=== PATIENT | female | born 1960 | race Caucasian/White ===

== ENCOUNTER 2016-09-14 09:19 | Observation (INO) | payer MEDICAID ==
[2016-09-14 09:29] VITALS: BMI 21.5
--- NOTE | 2016-09-14 10:07 | ED PDOC ---
Arrival/HPI - General Chief Complaint: Shortness Of Breath Time Seen by Provider: 09/14/16 09:34 Historian: Patient - History of Present Illness Narrative History of Present Illness (Text): 09/14/16 10:04 A 56 year old female, whose past medical history includes hypertension and acid reflux, presents to the emergency department complaining of shortness of breath for 1 month. Patient reports her symptoms have worsened over the past 2 days. Patient notes associated midsternal chest pressure, worse when taking deep breaths. Patient denies any recent travel. Denies any lower leg pain or swelling. Patient denies any other fever, chills, nausea, vomiting, abdominal pain, cough, headache, dizziness or any other complaints. Patient states she has been seen by her PMD for same symptoms. PMD: Dr. Major Time/Duration: Other (1 month) Symptom Course: Worsening (over the past 2 days) Quality: Pressure Severity Level: Mild Context: Home Past Medical History - Provider Review Nursing Documentation Reviewed: Yes - Travel History Have you recently traveled outside [place] w/in the past 3 mons?: No - Tetanus Immunization Tetanus Immunization: Unknown - Cardiac Hx Cardiac Disorders: Yes Hx Hypertension: Yes - Psychiatric Hx Substance Use: No Family/Social History - Physician Review Nursing Documentation Reviewed: Yes Family/Social History: No Known Family HX Smoking Status: Never Smoked Hx Alcohol Use: No Hx Substance Use: No Allergies/Home Meds Allergies/Adverse Reactions: Allergies No Known Allergies Allergy (Verified 09/14/16 09:29) Home Medications: Home Meds Medication Instructions Recorded Confirmed Amoxicillin/Clavulanate [Augmentin 1 tab PO BID 09/14/16 09/14/16 875 MG-125 MG] Aspirin [Adult Low Dose Aspirin EC] 81 mg PO DAILY 09/14/16 09/14/16 Cyanocobalamin (Vitamin B-12) 500 mcg PO DAILY 09/14/16 09/14/16 [Vitamin B-12] Ergocalciferol (Vitamin D2) 50,000 unit PO QWK 09/14/16 09/14/16 [Vitamin D2] Metoprolol Tartrate [Lopressor] 25 mg PO DAILY 09/14/16 09/14/16 Pantoprazole [Protonix] 40 mg PO DAILY 09/14/16 09/14/16 amLODIPine [Norvasc] 2.5 mg PO DAILY 09/14/16 09/14/16 Review of Systems - Physician Review All systems were reviewed & negative as marked: Yes - Review of Systems Constitutional: absent: Fatigue, Fevers, Night Sweats Respiratory: SOB. absent: Cough, Wheezing Cardiovascular: Chest Pain. absent: Syncope Gastrointestinal: absent: Abdominal Pain, Nausea, Vomiting Musculoskeletal: absent: Arthralgias, Myalgias Skin: absent: Rash, Pruritis Neurological: absent: Headache, Dizziness Physical Exam Vital Signs Reviewed: Yes Vital Signs Temp Pulse Resp BP Pulse Ox 09/14/16 13:49 97 H 16 129/73 99 09/14/16 11:36 91 H 16 145/68 100 09/14/16 09:34 18 09/14/16 09:26 98.4 F 100 H 18 156/79 H 100 Temperature: Afebrile Blood Pressure: Hypertensive Pulse: Tachycardic Respiratory Rate: Normal Appearance: Positive for: Well-Appearing, Non-Toxic, Comfortable Pain Distress: None Mental Status: Positive for: Alert and Oriented X 3 - Systems Exam Head: Present: Atraumatic, Normocephalic Pupils: Present: PERRL Extroacular Muscles: Present: EOMI Conjunctiva: Present: Normal Mouth: Present: Moist Mucous Membranes Pharnyx: No: ERYTHEMA, EXUDATE, TONSILS ENLARGED Neck: Present: Normal Range of Motion Respiratory/Chest: Present: Clear to Auscultation, Good Air Exchange, Tender to Palpation (Anterior chest wall tenderness to palpation). No: Respiratory Distress, Accessory Muscle Use Cardiovascular: Present: Regular Rate and Rhythm, Normal S1, S2. No: Murmurs Abdomen: Present: Normal Bowel Sounds. No: Tenderness, Distention, Peritoneal Signs Back: Present: Normal Inspection Upper Extremity: Present: Normal Inspection. No: Cyanosis, Edema Lower Extremity: Present: Normal Inspection. No: Edema Neurological: Present: GCS=15, Speech Normal Skin: Present: Warm, Dry, Normal Color. No: Rashes Psychiatric: Present: Alert, Oriented x 3 Medical Decision Making ED Course and Treatment: 09/14/16 10:04 Impression: A 56 year old female with worsening shortness of breath and midsternal chest pressure. Plan: -- Chest xray: wnl -- EKG: shows normal sinus rhythm at [address] elevations -- Labs: k; 3.2 trop; wnl -- Urinalysis: small blood -- Reassess and disposition Progress Notes: CMP; elevated lfts. Patient with elevated d-dimer CT angiogram to rule out pulmonary embolism was ordered. CT angiogram:FINDINGS: PULMONARY ARTERIES: Unremarkable. No pulmonary embolism. AORTA: No acute findings. No thoracic aortic aneurysm. LUNGS: Unremarkable. No nodule, mass or pulmonary consolidation. PLEURAL SPACES: Unremarkable. No effusion or pneuomothorax. HEART: Unremarkable. No cardiomegaly. No significant pericardial effusion. LYMPH NODES: No lymphadenopathy. BONES, CHEST WALL: Unremarkable. No fracture or destructive lesion OTHER FINDINGS: There is a 15 mm aneurysm arising from the splenic artery. This is seen on image 71 in the coronal plane IMPRESSION: Unremarkable CT pulmonary angiogram. No pulmonary embolus. Incidental splenic artery aneurysm pepcid and ASA given IV. Case discussed in depth with Dr. Major: will admit observational status to telemetry for chest pain rule out ACS. We will consult Dr. Browne regarding splenic artery aneurysm. all results discussed in depth with patient and family. Impression: Chest pain, splenic artery aneurysm Admitted to telemetry observational status - Lab Interpretations Lab Results: 09/14/16 10:16 09/14/16 10:16 Lab Results 09/14/16 10:29: Urine Color Yellow, Urine Appearance Clear, Urine pH 6.0, Ur Specific [place] 1.025, Urine Protein 100 H, Urine Glucose (UA) Negative, Urine Ketones Negative, Urine Blood Small H, Urine Nitrate Negative, Urine Bilirubin Negative, Urine Urobilinogen 0.2, Ur Leukocyte Esterase Negative, Urine RBC 0 - 2, Urine WBC 1 - 3, Ur Epithelial Cells 1 - 3, Urine Bacteria Few 09/14/16 10:16: D-Dimer, Quantitative 1.51 H 09/14/16 10:16: WBC 10.4, RBC 4.77, Hgb 12.1, Hct 37.5, MCV 78.6 L, MCH 25.4, MCHC 32.3, RDW 13.9, Plt Count 209, MPV 9.6, Gran % 78.1 H, Lymph % (Auto) 12.9 L, [place] % (Auto) 8.2 H, Eos % (Auto) 0.7 L, Baso % (Auto) 0.1, Gran # 8.15 H, Lymph # 1.4, [place] # 0.9 H, Eos # 0.1, Baso # 0.01 09/14/16 10:16: Sodium 142, Potassium 3.2 L, Chloride 106, Carbon Dioxide 23, Anion Gap 16, BUN 20, Creatinine 1.2, Est GFR ( Amer) 56, Est GFR (Non- Af Amer) 46, Random Glucose 117 H, Calcium 9.6, Total Bilirubin 0.6, AST 55 H, ALT 62 H, Alkaline Phosphatase 144 H, Lactate Dehydrogenase 448, Total Creatine Kinase 50, Troponin I < 0.01, Total Protein 8.6 H, Albumin 4.5, Globulin 4.1, Albumin/Globulin Ratio 1.1 I have reviewed the lab results: Yes - RAD Interpretation Radiology Orders: 09/14/16 10:05 CHEST PORTABLE [RAD] Stat 09/14/16 10:52 ANGIO CHEST PE PROTOCOL [CT] Stat - Medication Orders Current Medication Orders: Aspirin (Ecotrin) 81 mg PO DAILY ALEIDA Insulin Human Regular (Humulin R Low) 0 units SC ACHS ALEIDA PRN Reason: Protocol Metoprolol Tartrate (Lopressor) 25 mg PO BID ALEIDA Potassium Chloride (K-Dur 20 Meq Er Tab) 40 meq PO ONCE ONE Stop: 09/14/16 20:01 Discontinued Medications Aspirin (Aspirin) 325 mg PO STAT STA Stop: 09/14/16 14:09 Last Admin: 09/14/16 14:40 Dose: 325 mg Famotidine (Pepcid) 20 mg IVP STAT STA Stop: 09/14/16 11:41 Last Admin: 09/14/16 11:55 Dose: 20 mg Sodium Chloride (Sodium Chloride 0.9%) 1,000 mls @ 999 mls/hr IV .Q1H1M STA Stop: 09/14/16 11:53 Last Admin: 09/14/16 10:58 Dose: 999 mls/hr Iohexol (Omnipaque 350 100 Ml) Confirm Administered Dose 350 mg .ROUTE .STK-MED ONE Stop: 09/14/16 11:05 Potassium Chloride (K-Dur 20 Meq Er Tab) 40 meq PO STAT STA Stop: 09/14/16 16:32 - Scribe Statement The provider has reviewed the documentation as recorded by the Bertaibphi Harvey Provider Scribe Attestation: All medical record entries made by the Scribe were at my direction and personally dictated by me. I have reviewed the chart and agree that the record accurately reflects my personal performance of the history, physical exam, medical decision making, and the department course for this patient. I have also personally directed, reviewed, and agree with the discharge instructions and disposition. Disposition/Present on Arrival - Present on Arrival Any Indicators Present on Arrival: No History of DVT/PE: No History of Uncontrolled Diabetes: No Urinary Catheter: No History of Decub. Ulcer: No History Surgical Site Infection Following: None - Disposition Have Diagnosis and Disposition been Completed?: Yes Diagnosis: Chest pain, Splenic artery aneurysm Disposition: HOSPITALIZED Disposition Time: 14:05 Patient Plan: Observation, Telemetry Condition: FAIR
[2016-09-14 10:21] LABS: BASO # 0.01 K/mm3 (0.0-2.0); BASO % 0.1 % (0.0-3.0); EOS # 0.1 (0.0-0.7); EOS % 0.7 % (1.5-5.0); GRAN # 8.15 (1.4-6.5); GRAN % 78.1 % (50.0-68.0); HEMOGLOBIN 12.1 g/dL (12.0-16.0); LYMPH # 1.4 (1.2-3.4); LYMPH % 12.9 % (22.0-35.0); MEAN CELL VOLUME 78.6 fl (80.0-105.0); MEAN CORPUSCULAR HEMOGLOBIN 25.4 pg (25.0-35.0); MEAN CORPUSCULAR HGB CONC 32.3 g/dl (31.0-37.0); MEAN PLATELET VOLUME 9.6 fl (7.0-11.0); MONO # 0.9 (0.1-0.6); MONO % 8.2 % (1.0-6.0); PLATELET COUNT 209 10^3/uL (120.0-450.0); RBC 4.77 10^6/uL (3.5-6.1); RED CELL DISTRIBUTION WIDTH 13.9 % (11.5-14.5); WHITE BLOOD COUNT 10.4 10^3/ul (4.5-11.0)
[2016-09-14 10:30] LABS: ALB/GLOB RATIO 1.1 (1.1-1.8); ALBUMIN 4.5 g/dL (3.0-4.8); ALT/SGPT 62 U/L (7-56); AST/SGOT 55 U/L (15-39); BLOOD UREA NITROGEN 20 mg/dL (7-21); CALCIUM 9.6 mg/dL (8.4-10.5); GFR AFRICAN-AMERICAN 56; GFR NON-AFRICAN AMERICAN 46
[2016-09-14 10:32] LABS: URINE BILIRUBIN NEGATIVE (NEGATIVE); URINE BLOOD SMALL (NEGATIVE); URINE GLUCOSE (UA) NEGATIVE (NEGATIVE); URINE LEUKOCYTE ESTERASE NEGATIVE Leu/uL (NEGATIVE); URINE NITRATE NEGATIVE (NEGATIVE); URINE PROTEIN 100 mg/dL (<30 mg/dL); URINE UROBILINOGEN 0.2 E.U./dL (<1 E.U./dL)
[2016-09-14 10:33] LABS: URINE APPEARANCE CLEAR (CLEAR); URINE COLOR YELLOW (YELLOW)
[2016-09-14 10:43] LABS: URINE RBC 0 - 2 /hpf (0-2)
[2016-09-14 10:44] LABS: URINE BACTERIA FEW (NEG)
[2016-09-14 10:48] LABS: TROPONIN I < 0.01 ng/mL
[2016-09-14] MEDS ORDERED: Sodium Chloride 0.9% 1,000 ML IV STA (10:53)
--- NOTE | 2016-09-14 10:53 | RAD ---
HISTORY: chest pain COMPARISON: No prior. FINDINGS: LUNGS: No active pulmonary disease. PLEURA: No significant pleural effusion identified, no pneumothorax apparent. CARDIOVASCULAR: Normal. OSSEOUS STRUCTURES: No significant abnormalities. VISUALIZED UPPER ABDOMEN: Normal. OTHER FINDINGS: None. IMPRESSION: No active disease.
[2016-09-14] MEDS ORDERED: Iohexol 350 MG/100 ML VIAL ONE (11:04)
--- NOTE | 2016-09-14 12:10 | CT ---
PROCEDURE: CT Chest with contrast (Pulmonary Angiogram) HISTORY: sob/cp COMPARISON: None available. TECHNIQUE: Axial computed tomography images were obtained of the chest in the pulmonary arterial phase of enhancement. Coronal and sagittal reformatted images were created and reviewed. Intravenous contrast dose: 100 cc of Omni 350 Radiation dose: Total exam DLP = 379 mGy-cm. This CT exam was performed using one or more of the following dose reduction techniques: Automated exposure control, adjustment of the mA and/or kV according to patient size, and/or use of iterative reconstruction technique. FINDINGS: PULMONARY ARTERIES: Unremarkable. No pulmonary embolism. AORTA: No acute findings. No thoracic aortic aneurysm. LUNGS: Unremarkable. No nodule, mass or pulmonary consolidation. PLEURAL SPACES: Unremarkable. No effusion or pneuomothorax. HEART: Unremarkable. No cardiomegaly. No significant pericardial effusion. LYMPH NODES: No lymphadenopathy. BONES, CHEST WALL: Unremarkable. No fracture or destructive lesion OTHER FINDINGS: There is a 15 mm aneurysm arising from the splenic artery. This is seen on image 71 in the coronal plane IMPRESSION: Unremarkable CT pulmonary angiogram. No pulmonary embolus. Incidental splenic artery aneurysm
--- NOTE | 2016-09-14 13:00 | CARD ---
APPROVED REPORT EKG Measurement Heart [id number] <Conclusion> Normal sinus rhythm Possible Anterior infarct, age undetermined Abnormal ECG
--- NOTE | 2016-09-14 16:27 | CP.PCM.CON ---
History of Present Illness - History of Present Illness History of Present Illness: General Surgery Dr. Amado (covering Dr. Browne) 56 y/o F w/ PMHx of HTN presents to the ED c/o CP x3days. Pt describes pain as throbbing, substernal w/ radiation into the neck. Pt denies radiation to arms or back. Pain has been worsening. Pt has never had this pain previously. Pt admits to SOB 2/2 pain and decreased appetite. Pt denies F/C, abd pain, N/V, D/ C. Pt denies Hx of GERD or reflux. PMHx: see above Meds: reviewed in chart NKDA PSHx: x 2 SHx: denies tobacco, EtOH, drugs FHx: noncontributory Review of Systems - Review of Systems All systems: reviewed and no additional remarkable complaints except (see HPI) Past Patient History - Tetanus Immunizations Tetanus Immunization: Unknown - Past Social History Smoking Status: Never Smoked - CARDIAC Hx Cardiac Disorders: Yes Hx Hypertension: Yes - PSYCHIATRIC Hx Substance Use: No Meds Allergies/Adverse Reactions: Allergies Allergy/AdvReac Type Severity Reaction Status Date / Time No Known Allergies Allergy Verified 09/14/16 09:29 Physical Exam - Constitutional Appears: Non-toxic, No Acute Distress - Head Exam Head Exam: NORMAL INSPECTION - Eye Exam Eye Exam: Normal appearance - ENT Exam ENT Exam: Mucous Membranes Moist - Neck Exam Neck exam: Positive for: Normal Inspection - Respiratory Exam Respiratory Exam: NORMAL BREATHING PATTERN. absent: Accessory Muscle Use, Respiratory Distress - Cardiovascular Exam Cardiovascular Exam: absent: Bradycardia, Tachycardia Additional comments: reproducible chest pain on palpation - GI/Abdominal Exam GI & Abdominal Exam: Soft. absent: Distended, Firm, Guarding, Tenderness - Extremities Exam Extremities exam: Positive for: normal inspection - Neurological Exam Neurological exam: Alert, Oriented x3 - Psychiatric Exam Psychiatric exam: Normal Affect, Normal Mood - Skin Skin Exam: Dry, Intact, Normal Color, Warm Results - Vital Signs Recent Vital Signs: Last Vital Signs Temp 98.4 F 09/14/16 09:26 Pulse 97 H 09/14/16 13:49 Resp 16 09/14/16 13:49 BP 129/73 09/14/16 13:49 Pulse Ox 99 09/14/16 13:49 - Labs Result Diagrams: 09/14/16 10:16 09/14/16 10:16 - Imaging and Cardiology CT scan - chest Status: Image reviewed by me, Report reviewed by me Assessment & Plan - Assessment and Plan (Free Text) Assessment: 56 y/o F w/ CP found to have incidental 1.5cm splenic artery aneurysm - Trend Trops - outpatient monitoring of splenic aneurysm recommended - strict BP control recommended - no surgical intervention at this time. Will discussed w/ Dr. Aneudy Davis DO PGY2
[2016-09-14] MEDS ORDERED: Potassium Chloride 20 mEq ER Tab PO STA (16:31)
[2016-09-14] MEDS ORDERED: Potassium Chloride 20 mEq ER Tab PO ONE ×2 (20:00→22:15)
[2016-09-14] MEDS ORDERED: Promethazine DM 6.25 mg-15 mg/5 ml Syrup PO PRN (20:51)
[2016-09-14] MEDS ORDERED: Pneumococcal 23-Valent Vaccine IM ONE (20:51)
[2016-09-14 21:23] LABS: TROPONIN I < 0.01 ng/mL
--- NOTE | 2016-09-14 21:29 | CP.PCM.HP ---
History of Present Illness - History of Present Illness History of Present Illness: chest heavy x 2 days got worse recently,felt she gonna passout , no palpitation , no nvd, h/o htn, on meds no fever only mild cough recently, Present on Admission - Present on Admission Any Indicators Present on Admission: No History of Uncontrolled Diabetes: No Urinary Catheter: No Decubitus Ulcer Present: No Past Patient History - Tetanus Immunizations Tetanus Immunization: Unknown - Past Social History Smoking Status: Never Smoked - CARDIAC Hx Cardiac Disorders: Yes Hx Hypertension: Yes - MUSCULOSKELETAL/RHEUMATOLOGICAL Hx Falls: No - GASTROINTESTINAL Hx Gastroesophageal Reflux: Yes - PSYCHIATRIC Hx Substance Use: No Meds Allergies/Adverse Reactions: Allergies Allergy/AdvReac Type Severity Reaction Status Date / Time No Known Allergies Allergy Verified 09/14/16 09:29 Physical Exam - Constitutional Appears: Well - Head Exam Head Exam: ATRAUMATIC, NORMAL INSPECTION, NORMOCEPHALIC - Eye Exam Eye Exam: EOMI, Normal appearance, PERRL Pupil Exam: NORMAL ACCOMODATION, PERRL - ENT Exam ENT Exam: Mucous Membranes Moist, Normal Exam - Neck Exam Neck exam: Positive for: Normal Inspection - Respiratory Exam Respiratory Exam: Clear to Auscultation Bilateral, NORMAL BREATHING PATTERN Additional comments: chest wall tenderness upper more to the left of the sternum - Cardiovascular Exam Cardiovascular Exam: REGULAR RHYTHM - GI/Abdominal Exam GI & Abdominal Exam: Normal Bowel Sounds, Soft. absent: Tenderness - Rectal Exam Rectal Exam: Deferred, NORMAL INSPECTION - Exam Exam: Circumcision, NORMAL INSPECTION External exam: NORMAL EXTERNAL EXAM Speculum exam: NORMAL SPECULUM EXAM Bimanual exam: NORMAL BIMANUAL EXAM - Extremities Exam Extremities exam: Positive for: normal inspection - Back Exam Back exam: NORMAL INSPECTION - Neurological Exam Neurological exam: Alert, CN II-XII Intact, Normal Gait, Oriented x3, Reflexes Normal - Psychiatric Exam Psychiatric exam: Normal Affect, Normal Mood - Skin Skin Exam: Dry, Intact, Normal Color, Warm Results - Vital Signs Recent Vital Signs: Last Vital Signs Temp 98.6 F 09/14/16 20:18 Pulse 81 09/14/16 20:18 Resp 20 09/14/16 20:18 BP 131/72 09/14/16 20:18 Pulse Ox 97 09/14/16 19:36 - Labs Result Diagrams: 09/14/16 10:16 09/14/16 10:16 Labs: Laboratory Results - last 24 hr 09/14/16 20:55 Lactate Dehydrogenase 346 Total Creatine Kinase 42 Troponin I < 0.01 Assessment & Plan (1) Hepatitis Status: Acute (2) Chest pain Status: Acute (3) Splenic artery aneurysm Status: Acute - Assessment and Plan (Free Text) Plan: admitt cardiology, vascular surgery, gi consult, repeat labs in am , stress test Decision To Admit - Pt Status Changed To: Hospital Disposition Of: Observation - . Bed Request Type: Telemetry
[2016-09-14] MEDS: Insulin Reg-LOW-Coverage SC SCH (22:20)
--- NOTE | 2016-09-14 23:04 | CON ---
DATE: 09/14/2016 REASON FOR CONSULTATION: Chest pain, cardiac evaluation. BRIEF CLINICAL HISTORY: This is a 56-year-old female with past medical history of hypertension, hyperlipidemia, borderline diabetes, came with 1-week history of chest pain twice with tenderness going through the throat. Also dyspnea on exertion and shortness of breath. The patient underwent CT angio, was negative for PE, but incidental finding was splenic artery aneurysm. Denies any prior episode of chest pain or shortness of breath except for 1 week. is at the bedside. PAST MEDICAL HISTORY: Significant for sore throat, recently history of hypertension. FAMILY HISTORY: Noncontributory. Unknown. The patient migrated to [place] 21 years ago and unknown about the family. SOCIAL HISTORY: Denies any history of alcohol abuse. CURRENT MEDICATIONS: The patient is taking vitamin D 50,000 units per week, cyanocobalamin 500 mcg daily, aspirin 81 mg daily, amlodipine 2.5 mg daily, Protonix 40 mg daily, metoprolol tartrate 25 mg daily. ALLEGIES: NO KNOWN DRUG ALLERGIES. REVIEW OF SYSTEMS: As per HPI. PHYSICAL EXAMINATION GENERAL: Text. VITAL SIGNS: Height of the patient 5 feet 2 inches, weight of the patient is 118 pounds, body mass index 21.6 kg/m2. Temperature 98.4, heart rate 100, blood pressure 145/68. HEENT: PERRLA. Extraocular muscles intact. NECK: No carotid bruit. No thyromegaly. CHEST: Clear to auscultation. HEART: S1, S2 regular. ABDOMEN: Soft. EXTREMITIES: Clubbing, cyanosis negative. LABORATORY DATA: EKG, normal sinus rhythm. No acute ST-T changes noted. Blood workup as follows, WBC 10.4, hemoglobin 12.1, hematocrit 37.5, platelet count 209. Chemistry shows sodium 142, potassium 3.2, chloride 106, carbon dioxide 23, anion gap of 16, BUN 20, creatinine 1.2. Random sugar 117. IMPRESSION: Chest pain coronary artery disease, history of chest pain off and on since 1-week duration and risk factor for coronary artery disease. SUGGESTION: Echocardiogram and a stress test. Supplement potassium. Get lipid profile, TSH, and hemoglobin A1c. Further recommendation after the stress. We will follow with you. We will also get beta-hCG for . We will also supplement potassium 40 mEq now and 40 at [address] Hammond/ for the opportunity in taking care of this patient. Kevin Rico MD
[2016-09-15] MEDS ORDERED: Pantoprazole 40 mg EC Tab PO SCH (06:00)
[2016-09-15 06:29] VITALS: O2SAT 100
[2016-09-15 07:16] LABS: BASO # 0.01 K/mm3 (0.0-2.0); BASO % 0.1 % (0.0-3.0); EOS # 0.2 (0.0-0.7); EOS % 2.8 % (1.5-5.0); GRAN # 3.87 (1.4-6.5); GRAN % 54.8 % (50.0-68.0); HEMOGLOBIN 11.2 g/dL (12.0-16.0); LYMPH # 2.3 (1.2-3.4); LYMPH % 31.8 % (22.0-35.0); MEAN CELL VOLUME 78.5 fl (80.0-105.0); MEAN CORPUSCULAR HEMOGLOBIN 25.6 pg (25.0-35.0); MEAN CORPUSCULAR HGB CONC 32.7 g/dl (31.0-37.0); MEAN PLATELET VOLUME 10.3 fl (7.0-11.0); MONO # 0.7 (0.1-0.6); MONO % 10.5 % (1.0-6.0); PLATELET COUNT 209 10^3/uL (120.0-450.0); RBC 4.37 10^6/uL (3.5-6.1); RED CELL DISTRIBUTION WIDTH 14.1 % (11.5-14.5); WHITE BLOOD COUNT 7.1 10^3/ul (4.5-11.0)
[2016-09-15 07:39] LABS: ALB/GLOB RATIO 0.9 (1.1-1.8); ALBUMIN 3.6 g/dL (3.0-4.8); ALT/SGPT 60 U/L (7-56); AST/SGOT 47 U/L (15-39); BLOOD UREA NITROGEN 18 mg/dL (7-21); GFR AFRICAN-AMERICAN > 60; GFR NON-AFRICAN AMERICAN 51; HDL CHOLESTEROL 72 mg/dL (29-60); MAGNESIUM 1.7 mg/dL (1.7-2.2)
[2016-09-15 07:50] LABS: LDL CHOLESTEROL 90 mg/dL (0-129)
[2016-09-15] MEDS: Insulin Reg-LOW-Coverage SC SCH ×3 (08:00→16:56)
--- NOTE | 2016-09-15 08:27 | CP.PCM.PCO ---
Physician Communication Note - Physician Communication Note Physician Communication Note: No Sx < 2cm, repeat images Q6 months for aneurysm , reconsult if necessary
--- NOTE | 2016-09-15 08:28 | US ---
HISTORY: high lfts, splenic aneurysm COMPARISON: None. TECHNIQUE: Sonographic evaluation of the abdomen. FINDINGS: LIVER: Measures 15.8 cm. Normal echogenicity of the liver parenchyma. No mass. No intrahepatic bile duct dilatation. GALLBLADDER: Unremarkable. No gallstones. COMMON BILE DUCT: Measures 6 mm. No stones. No dilatation. PANCREAS: Unremarkable as visualized. No mass. No ductal dilatation. RIGHT KIDNEY: Measures 11.1cm. Normal echogenicity. No calculus, mass, or hydronephrosis. LEFT KIDNEY: Measures 10.7cm. Normal echogenicity. No calculus or hydronephrosis. Simple lower pole cortical cyst, 1.0 x 1.4 x 1.6 cm. SPLEEN: Normal in size and contour. No mass. AORTA: No aneurysmal dilatation. IVC: Unremarkable. OTHER FINDINGS: None. IMPRESSION: Incidental 1.6 cm left lower pole renal cortical cyst. Unremarkable liver. Splenic artery aneurysm not demonstrated.
--- NOTE | 2016-09-15 16:31 | PN ---
DATE: 09/15/2016 REASON FOR CONSULTATION: Chest pain, cardiac evaluation. SUBJECTIVE: The patient denies any chest pain today. Yesterday, she had a chest pain. OBJECTIVE: GENERAL: Lying flat on the bed, family is at bedside, waiting to go for stress test, n.p.o. Examination as follows: VITAL SIGNS: Temperature afebrile, hear rate 72, blood pressure 126/71. HEENT: PERRLA. Extraocular muscles are intact. NECK: Supple. No carotid bruits. No thyromegaly. CHEST: Clear to auscultation. HEART: S1 and S2, regular. ABDOMEN: Soft. EXTREMITIES: Clubbing and cyanosis are negative. LABORATORY DATA: Blood workup as follows: WBC 7.1, hemoglobin 11.2, hematocrit 34.3, platelet count 209. Chemistry shows sodium 143, potassium 4.2, chloride 111, carbon dioxide 20, anion gap of 15, BUN 18, creatinine 1.1. Troponin 0.01 x2 negative. TSH 3.12. Triglyceride 73, cholesterol 194, LDL 90 and HDL 72. IMPRESSION: A 56-year-old female with past medical history significant for hypertension, admitted with chest pain, and scheduled for echo and stress test today. So far, troponins are negative, no evidence of acute coronary syndrome. RECOMMENDATIONS: Echo and stress test today. Further recommendations after the stress test. Supplemented potassium yesterday. Beta-hCG is mildly elevated at 6.82. We will discuss with the patient. We will keep n.p.o. for stress test today. Kevin Rico MD
[2016-09-15 17:57] VITALS: BP 120/73; PULSE 72; RESP 16; TEMP 98
--- NOTE | 2016-09-15 23:35 | CARD ---
APPROVED REPORT Protocol: NADIR Test Type: Sestamibi Stress Test Attending Physician: Dr. Kevin Rico Referring Physician: Dr. Alfa Major Test Indications: Chest Pain Height:5 ft 2 in Weight:151lbs Medications: Aspirin,Lopressor,Protonix, Medical History: 56 y/o female. Hx of hyprtension,chest pain. Target HR: 162 bpm Resting ECG: normal Resting Heart Rate: 81 bpm Resting Blood Pressure: 120/80mmHg Submaximum (85%): 138 bpm POST EXERCISE Reason for Termination: Fatigue Target HR: No Max HR: 144 bpm 92% of Maximum Predicted HR: 162 bpm Exercise duration: 06:03 min:sec, 3 Stage Exercise capacity: 7.0METs Max Blood Pressure: 162/60mmHg Blood Pressure response to exercise: normal resting BP - appropriate response Heart Rate response to exercise: appropriate Chest Pain: No, none Angina index: 0 Arrhythmia: No, none ST Change: No, none Deviation: 0 mm TEST SUMMARY [id number]. EXERCISESTAGE [id number]. EXERCISESTAGE [id number]. EXERCISESTAGE 300:[id number]/.0. [id number]. INTERPRETATION Stress EKG Conclusion: Negative stresstest for ischemia and for chest pain, Nuclear scan to follow. Signed by Kevin Rico Electronically Approved: 09/15/2016 13:58:22 EXAM: Myocardial Perfusion REST/STRESS Stress Test Type: Exercise Treadmill Imaging Protocol Rest Spect myocardial perfusion imaging was performed in supine position 60 minutes following the injection of 10.9 mCi of Tc-99 Myoview. At peak stress, the patient was injected intravenously with 30.2mCi of Tc-99 tetrofosmin after an exercise time of 6 minutes and 03 seconds. Gated Stress Spect was performed 65 minutes after intravenous Tc-99 Myoview injection. The images were gated to evaluate regional wall motion and calculate ventricular ejection fraction.Images were reconstructed using backfilter projection method in short horizontal and verticle long axis. Spect slices were generated. LV Perfusion The quality of the study is good. The left ventricle is normal in size. The right ventricle is unremarkable. The lung uptake is within normal limits. The distribution of tracer reveals normal uptake pattern throughout the LV myocardium on the stress study. The rest myocardial perfusion study shows no significant change. Wall Motion Wall motion study shows good contractility of the left ventricle. LVEF = 73%. Conclusion 1. Normal SPECT myocardial perfusion study. 2. Normal gated wall motion of the left ventricle.
--- NOTE | 2016-09-16 17:51 | CARD ---
APPROVED REPORT EXAM: Two-dimensional and M-mode echocardiogram with Doppler and color Doppler. INDICATION Chest Pain 2D DIMENSIONS Left Atrium (2D)3.3 (1.6-4.0cm)IVSd0.9 (0.7-1.1cm) LVDd4.5 (3.9-5.9cm)PWd0.8 (0.7-1.1cm) LVDs3.1 (2.5-4.0cm)FS (%) 30.5 % LVEF (%)58.1 (>50%) M-Mode DIMENSIONS Aortic Root2.20 (2.2-3.7cm)Aortic Cusp Exc.1.50 (1.5-2.0cm) Aortic Valve AoV Peak Vvaauzbz946.0cm/Saroj Peak GR.9mmHg Mitral Valve MV E Eajkheyl01.9cm/sMV A Fziziift51.2cm/sE/A ratio1.1 TDI E/Lateral E'0.0E/Medial E'0.0 Tricuspid Valve TR Peak Gpnaptni382yb/sRAP [id number] Peak Gr.22mmHg FURY28xoRd LEFT VENTRICLE The left ventricle is normal size. There is normal left ventricular wall thickness. The left ventricular function is normal.EF-55-60% There is normal LV segmental wall motion. The left ventricular diastolic function is normal. No left ventricle thrombus noted on this study. There is no ventricular septal defect visualized. There is no left ventricular aneurysm. There is no mass noted in the left ventricle. RIGHT VENTRICLE The right ventricle is normal size. There is normal right ventricular wall thickness. The right ventricular systolic function is normal. ATRIA The left atrium size is normal. The right atrium size is normal. The interatrial septum is intact with no evidence for an atrial septal defect. AORTIC VALVE The aortic valve is normal in structure. There is trace aortic regurgitation. There is no aortic valvular stenosis. There is no aortic valvular vegetation. MITRAL VALVE The mitral valve is thickened but opens well. Mitral regurgitation is mild. There is no mitral valve stenosis. There is no evidence of mitral valve prolapse. TRICUSPID VALVE The tricuspid valve leaflets are thickened , but open well. There is mild tricuspid regurgitation.RVSP_32 mmof hg. There is no tricuspid valve stenosis. There is no tricuspid valve prolapse or vegetation. PULMONIC VALVE The pulmonary valve is normal in structure. There is trace pulmonic valvular regurgitation. There is no pulmonic valvular stenosis. GREAT VESSELS The aortic root is normal in size. The ascending aorta is normal in size. The pulmonary artery is normal. The IVC is normal in size and collapses >50% with inspiration. PERICARDIAL EFFUSION There is no pleural effusion. There is no pericardial effusion. <Conclusion> Normal chamber Size. EF-55-60% Trace AR/PI. Mild MR/TR RVSP-32 mmof hg.
--- NOTE | 2016-09-17 10:03 | CP.PCM.DIS ---
Provider - Provider Date of Admission: 09/14/16 14:07 Attending physician: Alfa Major MD Primary care physician: Alfa Major MD Time Spent in preparation of Discharge (in minutes): 25 Diagnosis - Discharge Diagnosis (1) Hepatitis Status: Acute Comment: patient seen by cardiology consult stress test echo. gi dr welsh, surgery dr gonzaelz. f/up as outpatiet for splenic artery anursm, discuss risk of trauma, strenius physical work on aneurysm, (2) Chest pain Status: Acute (3) Splenic artery aneurysm Status: Acute Hospital Course - Lab Results Lab Results: Most Recent Lab Values WBC 7.1 10^3/ul (4.5-11.0) D 09/15/16 06:10 RBC 4.37 10^6/uL (3.5-6.1) 09/15/16 06:10 Hgb 11.2 g/dL (12.0-16.0) L 09/15/16 06:10 Hct 34.3 % (36.0-48.0) L 09/15/16 06:10 MCV 78.5 fl (80.0-105.0) L 09/15/16 06:10 MCH 25.6 pg (25.0-35.0) 09/15/16 06:10 MCHC 32.7 g/dl (31.0-37.0) 09/15/16 06:10 RDW 14.1 % (11.5-14.5) 09/15/16 06:10 Plt Count 209 10^3/uL (120.0-450.0) 09/15/16 06:10 MPV 10.3 fl (7.0-11.0) 09/15/16 06:10 Gran % 54.8 % (50.0-68.0) 09/15/16 06:10 Lymph % (Auto) 31.8 % (22.0-35.0) 09/15/16 06:10 [place] % (Auto) 10.5 % (1.0-6.0) H 09/15/16 06:10 Eos % (Auto) 2.8 % (1.5-5.0) 09/15/16 06:10 Baso % (Auto) 0.1 % (0.0-3.0) 09/15/16 06:10 Gran # 3.87 (1.4-6.5) 09/15/16 06:10 Lymph # 2.3 (1.2-3.4) 09/15/16 06:10 [place] # 0.7 (0.1-0.6) H 09/15/16 06:10 Eos # 0.2 (0.0-0.7) 09/15/16 06:10 Baso # 0.01 K/mm3 (0.0-2.0) 09/15/16 06:10 D-Dimer, Quantitative 1.51 mg/L FEU (0-0.50) H 09/14/16 10:16 Sodium 143 mmol/L (132-148) 09/15/16 06:10 Potassium 4.2 mmol/L (3.6-5.0) 09/15/16 06:10 Chloride 112 mmol/L (98-107) H 09/15/16 06:10 Carbon Dioxide 20 mmol/L (21-33) L 09/15/16 06:10 Anion Gap 15 (10-20) 09/15/16 06:10 BUN 18 mg/dL (7-21) 09/15/16 06:10 Creatinine 1.1 mg/dL (0.5-1.4) 09/15/16 06:10 Est GFR ( Amer) > 60 09/15/16 06:10 Est GFR (Non-Af Amer) 51 09/15/16 06:10 POC Glucose (mg/dL) 199 mg/dL (65-110) H 09/15/16 16:35 Random Glucose 109 mg/dL (70-110) 09/15/16 06:10 Hemoglobin A1c 6.3 % (4.2-6.5) 09/15/16 06:10 Calcium 9.0 mg/dL (8.4-10.5) 09/15/16 06:10 Phosphorus 2.9 mg/dL (2.5-4.5) 09/15/16 06:10 Magnesium 1.7 mg/dL (1.7-2.2) 09/15/16 06:10 Total Bilirubin 0.8 mg/dL (0.2-1.3) 09/15/16 06:10 AST 47 U/L (15-39) H 09/15/16 06:10 ALT 60 U/L (7-56) H 09/15/16 06:10 Alkaline Phosphatase 127 U/L (38-133) 09/15/16 06:10 Lactate Dehydrogenase 346 U/L (333-699) 09/14/16 20:55 Total Creatine Kinase 42 U/L (35-230) 09/14/16 20:55 Troponin I < 0.01 ng/mL 09/14/16 20:55 Total Protein 7.4 g/dL (5.8-8.3) 09/15/16 06:10 Albumin 3.6 g/dL (3.0-4.8) 09/15/16 06:10 Globulin 3.8 gm/dL 09/15/16 06:10 Albumin/Globulin Ratio 0.9 (1.1-1.8) L 09/15/16 06:10 Triglycerides 73 mg/dL (35-160) 09/15/16 06:10 Cholesterol 194 mg/dL (130-200) 09/15/16 06:10 LDL Cholesterol Direct 90 mg/dL (0-129) 09/15/16 06:10 HDL Cholesterol 72 mg/dL (29-60) H 09/15/16 06:10 TSH 3rd Generation 3.17 mIU/mL (0.46-4.68) 09/15/16 06:10 Beta HCG, Quant 6.82 mIU/mL (0-6.15) H 09/14/16 20:55 Urine Color Yellow (YELLOW) 09/14/16 10:29 Urine Appearance Clear (CLEAR) 09/14/16 10:29 Urine pH 6.0 (4.7-8.0) 09/14/16 10:29 Ur Specific [place] 1.025 (1.005-1.035) 09/14/16 10:29 Urine Protein 100 mg/dL (<30 mg/dL) H 09/14/16 10:29 Urine Glucose (UA) Negative mg/dL (NEGATIVE) 09/14/16 10:29 Urine Ketones Negative mg/dL (NEGATIVE) 09/14/16 10:29 Urine Blood Small (NEGATIVE) H 09/14/16 10:29 Urine Nitrate Negative (NEGATIVE) 09/14/16 10:29 Urine Bilirubin Negative (NEGATIVE) 09/14/16 10:29 Urine Urobilinogen 0.2 E.U./dL (<1 E.U./dL) 09/14/16 10:29 Ur Leukocyte Esterase Negative Samantha/uL (NEGATIVE) 09/14/16 10:29 Urine RBC 0 - 2 /hpf (0-2) 09/14/16 10:29 Urine WBC 1 - 3 /hpf (0-6) 09/14/16 10:29 Ur Epithelial Cells 1 - 3 /hpf (0-5) 09/14/16 10:29 Urine Bacteria Few (NEG) 09/14/16 10:29 Discharge Exam - Head Exam Head Exam: ATRAUMATIC, NORMAL INSPECTION, NORMOCEPHALIC - Eye Exam Eye Exam: EOMI, Normal appearance, PERRL Pupil Exam: NORMAL ACCOMODATION, PERRL - GI/Abdominal Exam GI & Abdominal Exam: Normal Bowel Sounds - Rectal Exam Rectal Exam: NORMAL INSPECTION - Skin Skin Exam: Normal Color, Warm Discharge Plan - Follow Up Plan Condition: FAIR Disposition: HOME/ ROUTINE Patient education suggested?: Yes Instructions: Chest Pain (DC), Heart Healthy Diet (DC), Dyspnea (GEN) Additional Instructions: - Follow up with Dr. Major in 1 week. - Follow up with Dr. Pereira/ in 3-4 days. Call [phone]. - Continue home medications.
== END 2016-09-15 18:23 | disposition home or self-care (01) ==
LOC: ED 09:19 → ERH 14:07 → UNDOADMOB 14:47 → ERH 14:47 → 2RNO 19:59 → UNDODISOB 09-15 18:23
PROVIDERS: ADMIT Internal Medicine; ATTEND Internal Medicine
DX: R07.9 Chest pain, unspecified (principal); I72.8 Aneurysm of other specified arteries; K72.00 Acute and subacute hepatic failure without coma; Z79.82 Long term (current) use of aspirin; I10 Essential (primary) hypertension; K21.9 Gastro-esophageal reflux disease without esophagitis; E78.5 Hyperlipidemia, unspecified; R73.03 Prediabetes
CPT/HCPCS: 36415; 71010; 71275; 76700; 78452; 80053; 80061; 81001; 82550; 82948; 83036; 83615; 83735; 84100; 84443; 84484; 84702; 85025; 85378; 93005; 93017; 93306; 96374; 99285; A9502; G0378; J7040; Q9967

== ENCOUNTER 2017-04-26 05:26 | Emergency (ER) | payer MEDICAID ==
[2017-04-26 05:33] VITALS: BMI 28.3
[2017-04-26 05:36] VITALS: BP 150/89; PULSE 95; RESP 18; TEMP 98; O2SAT 99
--- NOTE | 2017-04-26 06:00 | ED PDOC ---
Arrival/HPI - General Chief Complaint: Upper Extremity Problem/Injury Time Seen by Provider: 04/26/17 05:38 Historian: Patient - History of Present Illness Narrative History of Present Illness (Text): 04/26/17 05:59 A 56 year old female, whose past medical history includes hypertension and acid reflux, presents to the emergency department complaining of left wrist pain. Patient reports she was cooking all day. Patient denies any trauma. Patient denies any fever, chills, back pain, nausea, vomiting, headache, dizziness or any other complaints at this time. Symptom Onset: Sudden Symptom Course: Unchanged Activities at Onset: Light Context: Home Past Medical History - Provider Review Nursing Documentation Reviewed: Yes - Tetanus Immunization Tetanus Immunization: Unknown - Cardiac Hx Cardiac Disorders: Yes Hx Hypertension: Yes - Musculoskeletal/Rheumatological Hx Falls: No - Gastrointestinal Hx Gastroesophageal Reflux: Yes - Psychiatric Hx Substance Use: No - Anesthesia Hx Anesthesia: No Family/Social History - Physician Review Nursing Documentation Reviewed: Yes Family/Social History: No Known Family HX Smoking Status: Never Smoked Hx Alcohol Use: No Hx Substance Use: No Allergies/Home Meds Allergies/Adverse Reactions: Allergies No Known Allergies Allergy (Verified 09/14/16 09:29) Home Medications: Home Meds Medication Instructions Recorded Confirmed amLODIPine [Norvasc] 2.5 mg PO DAILY 09/14/16 04/26/17 Review of Systems - Physician Review All systems were reviewed & negative as marked: Yes - Review of Systems Constitutional: absent: Fevers, Other (chills) Gastrointestinal: absent: Nausea, Vomiting Musculoskeletal: Other (left wrist pain). absent: Back Pain Neurological: absent: Headache, Dizziness Physical Exam Vital Signs Reviewed: Yes Vital Signs Temp Pulse Resp BP Pulse Ox 04/26/17 05:34 98.0 F 95 H 18 150/89 99 Temperature: Afebrile Blood Pressure: Normal Pulse: Regular Respiratory Rate: Normal Appearance: Positive for: Well-Appearing, Non-Toxic, Comfortable Pain Distress: None Mental Status: Positive for: Alert and Oriented X 3 - Systems Exam Head: Present: Atraumatic, Normocephalic Pupils: Present: PERRL Extroacular Muscles: Present: EOMI Conjunctiva: Present: Normal Mouth: Present: Moist Mucous Membranes Neck: Present: Normal Range of Motion Respiratory/Chest: Present: Clear to Auscultation, Good Air Exchange. No: Respiratory Distress, Accessory Muscle Use Cardiovascular: Present: Regular Rate and Rhythm, Normal S1, S2. No: Murmurs Abdomen: Present: Normal Bowel Sounds. No: Tenderness, Distention, Peritoneal Signs Back: Present: Normal Inspection Upper Extremity: Present: Tenderness (left wrist). No: Cyanosis, Edema Lower Extremity: Present: Normal Inspection. No: Edema Neurological: Present: GCS=15, CN II-XII Intact, Speech Normal Skin: Present: Warm, Dry, Normal Color. No: Rashes Psychiatric: Present: Alert, Oriented x 3, Normal Insight, Normal Concentration Medical Decision Making ED Course and Treatment: 04/26/17 05:56 Impression: A 56 year old female with left wrist pain. Denies any trauma. Plan: -- Radiology left wrist -- Toradol -- Reassess and disposition Prior Visits: Notes and results from previous visits were reviewed. Patient was last seen in the emergency department on 09/14/16 for evaluation of shortness of breath and midsternal chest pressure. Patient was admitted to telemetry for chest pain rule out ACS. Patient was discharged on 09/17/16. Progress Notes: 04/26/17 06:16 Negative left wrist xray, as read by me. - RAD Interpretation Radiology Orders: 04/26/17 05:48 WRIST, LEFT 3 VIEWS [RAD] Stat - Medication Orders Current Medication Orders: Discontinued Medications Ketorolac Tromethamine (Toradol) 30 mg IM ONCE ONE Stop: 04/26/17 05:49 Last Admin: 04/26/17 05:48 Dose: 30 mg MAR Pain Assessment Document 04/26/17 05:48 AD (Rec: 04/26/17 06:00 [id number] Pain Reassessment Is this a pain reassessment? No Presence of Pain Presence of Pain Yes Pain Scale Used Pain Scale Used Numeric Location Left, Right or Bilateral Left Pain Location Body Site Wrist Description Description Constant Intensity of Pain at present 7 Pain Behavior Moaning Facial Grimacing IM Administration Charges Document 04/26/17 05:48 AD (Rec: 04/26/17 06:00 [id number]) Injection Site MAR Injection Site Right Deltoid Charges for Administration # of IM Administrations 1 - Scribe Statement The provider has reviewed the documentation as recorded by the Bertaibphi Quintana Provider Scribe Attestation: All medical record entries made by the Scribe were at my direction and personally dictated by me. I have reviewed the chart and agree that the record accurately reflects my personal performance of the history, physical exam, medical decision making, and the department course for this patient. I have also personally directed, reviewed, and agree with the discharge instructions and disposition. Disposition/Present on Arrival - Present on Arrival History of DVT/PE: No History of Uncontrolled Diabetes: No Urinary Catheter: No History of Decub. Ulcer: No History Surgical Site Infection Following: None - Disposition Diagnosis: Tendonitis of wrist, left Disposition: HOME/ ROUTINE Patient Problems: Current Active Problems Problem Status Onset Tendonitis of wrist, left Acute Discharge Instructions (ExitCare): Tendonitis (DC) Additional Instructions: use wrist support as needed Prescriptions: Naproxen [Naprosyn] 500 mg PO BID #14 tablet Forms: [employer] ([place])
--- NOTE | 2017-04-26 10:12 | RAD ---
PROCEDURE: Left Wrist Radiographs. HISTORY: pain COMPARISON: None. FINDINGS: BONES: Normal. No fracture. JOINTS: Moderate degenerative changes at the base of the thumb SOFT TISSUES: Normal. OTHER FINDINGS: None. IMPRESSION: Moderate degenerative changes at the base of the thumb
== END 2017-04-26 06:35 | disposition home or self-care (01) ==
LOC: ED 05:26
DX: M77.9 Enthesopathy, unspecified (principal); I10 Essential (primary) hypertension
CPT/HCPCS: 73110; 96372; 99284; J1885

== ENCOUNTER 2018-03-16 13:13 | Outpatient (CLI) | payer MEDICAID | END 2018-03-16 13:14 | disposition home or self-care (01) | LOC: RAD 13:13 ==

== ENCOUNTER → 2018-05-18 | Outpatient (CLI) | payer MEDICAID | LOC: RAD 08:01 ==